=== PATIENT | male | born 1990 | race American Indian/Alaskan Native ===

== ENCOUNTER 2018-06-11 00:32 | Emergency (ER) | payer SELFPAY ==
[2018-06-11] MEDS ORDERED: NACL 0.9% 1000 ML 1,000 ML IV ONE (00:48)
--- NOTE | 2018-06-11 00:59 | Emergency Department Report ---
HPI - General Chief Complaint: Altered Mental Status Time Seen by Provider: 06/11/18 00:44 - HPI HPI: 27-year-old AA male presents to the emergency department by EMS from home with altered mental status. Allegedly the came out from another room and found the patient slumped over and unresponsive. He was given 4 mg of Narcan in route without any change in mental status. He does not have any listed past medical history. The patient was here one previous time, about 3 years ago, with a similar unresponsive episode and some alcohol intoxication and positive urine drug screen. The patient's girlfriend later came bedside and says that the patient was complaining of feeling ill and complaining of a sore throat. He did take about 50 mg of Benadryl. She was laying in bed with him and he started saying that he was feeling sleepy and was going to go to sleep. She noticed that he was having some abnormal breathing patterns and appeared hard to arouse and therefore called for EMS. She denies that the patient had drank any alcohol or used any illicit drugs. ED Past Medical Hx - Past Medical History Previous Medical History?: No - Surgical History Past Surgical History?: No Additional Surgical History: unknown - Social History Smoking Status: Unknown if ever smoked - Medications Home Medications: Home Medications Medication Instructions Recorded Confirmed Last Taken Type RX: Azithromycin [Zithromax Z-DELORIS] 250 mg PO DAILY #6 tab 06/11/18 Unknown Rx RX: Ibuprofen 800 mg PO Q8H PRN #20 tablet 06/11/18 Unknown Rx ED Review of Systems ROS: Stated complaint: AMS Other details as noted in HPI Comment: Unobtainable due to pts medical conditions Physical Exam - Physical Exam Vital Signs: Vital Signs 06/11/18 06/11/18 00:36 00:39 Temperature 100.3 F H Pulse Rate 79 82 Respiratory 21 22 Rate Blood Pressure 153/96 O2 Sat by Pulse 98 Oximetry Physical Exam: The initial physical examination showed the patient to be difficult to arouse and unresponsive but he did have a gag reflex. Heart and lungs sounds are normal and auscultation. Pupils equal and reactive to light. Shortly after the patient had the CT scan done of his head he was awake, alert, oriented and I was able to do a more thorough physical examination. GENERAL: The patient is well-developed well-nourished. HEENT: Normocephalic. Atraumatic. Patient has moist mucous membranes. Patient has bilateral tonsillar hypertrophy and erythema with right-sided tonsillar exudates. EYES: Extraocular motions are intact. Pupils are equal and reactive to light bilaterally. NECK: Supple. Trachea is midline. CHEST/LUNGS: Clear to auscultation. There is no respiratory distress noted. HEART/CARDIOVASCULAR: Regular. There is no tachycardia. There is no obvious murmur. ABDOMEN: Abdomen is soft, nontender. Patient has normal bowel sounds. There is no abdominal distention. SKIN: Skin is warm and dry. NEURO: The patient is awake, alert, and oriented. The patient is cooperative. The patient has no focal neurologic deficits. The patient has normal speech. Cranial nerves II through XII grossly intact. MUSCULOSKELETAL: There is no tenderness or deformity. There is no limitation range of motion. There is no evidence of acute injury. ED Course Vital Signs 06/11/18 06/11/18 00:36 00:39 Temperature 100.3 F H Pulse Rate 79 82 Respiratory 21 22 Rate Blood Pressure 153/96 O2 Sat by Pulse 98 Oximetry ED Medical Decision Making - Lab Data Result diagrams: 06/11/18 00:53 06/11/18 00:53 - EKG Data -: EKG Interpreted by Nd EKG shows normal: sinus rhythm, axis, intervals, QRS complexes, ST-T waves (early repolarization) Rate: normal - EKG Data When compared to previous EKG there are: previous EKG unavailable Interpretation: normal EKG (early repolarization) - Radiology Data Radiology results: report reviewed CT of the head without contrast does not show any bleed, shift, mass, ischemia or any other acute process. - Medical Decision Making This patient originally presented unresponsive and/or as altered mental status. A CT scan of the head was done that did not show any bleed, shift, mass, ischemia or any other acute process. Patient's labs were unremarkable including a CBC, CMP and blood alcohol level. Patient did become awake, alert, oriented shortly after having the CT scan done of his head. Overall it just appears that the patient was very sedated from the Benadryl. The patient was complaining of a sore throat he does appear to have an appearance of strep pharyngitis. This is most likely reason for the patient's mild fever. He was given a dose of Toradol, IV fluid resuscitation and a dose of azithromycin here. He will get a prescription for antibiotics for home and has been given some referrals for primary care. He will return to the ER with any worsening of his symptoms or any acute distress. - Differential Diagnosis strep pharyngitis, substance abuse, sepsis, alcohol intoxication Critical Care Time: No Critical care attestation.: If time is entered above; I have spent that time in minutes in the direct care of this critically ill patient, excluding procedure time. ED Disposition Clinical Impression: Strep pharyngitis, Unresponsive episode, Elevated blood pressure reading Disposition: DC- TO HOME OR SELFCARE Is pt being admited?: No Condition: Stable Instructions: Strep Throat (ED) Additional Instructions: Please follow up with a primary care physician in the next few days. Return to the emergency Department with any worsening of your symptoms or any acute distress. Prescriptions: RX: Azithromycin [Zithromax Z-DELORIS] 250 mg PO DAILY #6 tab RX: Ibuprofen 800 mg PO Q8H PRN #20 tablet PRN Reason: Pain , Severe (7-10) Referrals: PRIMARY CAREMD [Primary Care Provider] - 3-5 Days [facility] [Outside] - 3-5 Days Time of Disposition: 03:25
[2018-06-11 01:05] LABS: Basophils # (Auto) 0.1 K/mm3 (0.0-0.1); Basophils % (Auto) 0.9 % (0.0-1.8); Eosinophils # (Auto) 0.3 K/mm3 (0.0-0.4); Eosinophils % (Auto) 3.9 % (0.0-4.3); Hematocrit 46.8 % (35.5-45.6); Hemoglobin 15.6 gm/dl (11.8-15.2); Lymphocytes # (Auto) 2.1 K/mm3 (1.2-5.4); Lymphocytes % (Auto) 27.7 % (13.4-35.0); Mean Corpuscular HGB Conc 33 % (32-34); Mean Corpuscular Volume 91 fl (84-94); Monocytes # (Auto) 0.5 K/mm3 (0.0-0.8); Monocytes % (Auto) 6.2 % (0.0-7.3); Platelet Count 189 K/mm3 (140-440); Red Blood Count 5.16 M/mm3 (3.65-5.03); Red Cell Distribution Width 14.9 % (13.2-15.2)
--- NOTE | 2018-06-11 01:25 | Cat Scan Report ---
FINAL REPORT EXAM: CT HEAD/BRAIN WO CON HISTORY: AMS TECHNIQUE: CT was performed from the foramen magnum through the vertex in the axial plane without th e use of intravenous contrast. PRIORS: None. FINDINGS: The rbuno/white matter attenuation pattern is normal. There is no mass lesion or mass effect. There ar e no abnormal extra-axial fluid collections. There is no evidence of acute intracranial hemorrhage or infarct. The ventricles are of normal size and configuration. The skull and orbits are unremarkable . The visualized paranasal sinuses are clear. IMPRESSION: Normal CT of the head.
[2018-06-11 01:30] LABS: Alanine Aminotransferase 14 units/L (7-56); Albumin 4.3 g/dL (3.9-5); BUN/Creatinine Ratio 12; Blood Urea Nitrogen 12 mg/dL (9-20); Calcium 9.2 mg/dL (8.4-10.2); Hemolysis Index 31
[2018-06-11] MEDS ORDERED: ZITHROMAX 500 MG in NACL 0.9% 250ML 250 ML IV ONE (01:53)
[2018-06-11] MEDS ORDERED: TORADOL IV ONE (01:53)
[2018-06-11 03:40] VITALS: BP 119/74
== END 2018-06-11 03:40 | disposition home or self-care (01) ==
LOC: ED 00:32 → MERGE 00:32 → ED 03:40
DX: J02.0 Streptococcal pharyngitis (principal); R46.4 Slowness and poor responsiveness; R03.0 Elevated blood-pressure reading, without diagnosis of hypertension
CPT/HCPCS: 36415; 70450; 80053; 82140; 84484; 85025; 93005; 93010; 96365; 96375; 99285; G0480; J0456; J1885; J7030; J7050; 80320

== ENCOUNTER 2018-08-24 17:27 | Emergency (ER) | payer OTHER ==
[2018-08-24] MEDS ORDERED: MORPHINE IV ONE ×2 (18:09→20:33)
[2018-08-24] MEDS ORDERED: NACL 0.9% 1000 ML 1,000 ML IV ONE ×2 (18:09→20:34)
[2018-08-24] MEDS ORDERED: ZOFRAN IV ONE (18:09)
--- NOTE | 2018-08-24 18:22 | Emergency Department Report ---
ED General Adult HPI - General Chief complaint: Back Pain/Injury Stated complaint: CANT BREATH/TEMP HIGH Time Seen by Provider: 08/24/18 18:00 Source: patient, family Mode of arrival: Wheelchair Limitations: No Limitations - History of Present Illness Initial comments: Patient presents to the emergency department with a chief complaint left back pain and mild headache. Patient states the symptoms started this morning. Patient describes the back pain is sharp in nature with no migration. The patient describes his headache as being in between the bridge of his nose and describes it as a throbbing-like pain. Not worse headache of life. -: Sudden Location: head, back Radiation: non-radiation Severity scale (0 -10): 8 Quality: sharp Consistency: constant Improves with: none Worsens with: none Associated Symptoms: denies other symptoms Treatments Prior to Arrival: none - Related Data Previous Rx's Medication Instructions Recorded Last Taken Type Azithromycin [Zithromax Z-DELORIS] 250 mg PO DAILY #6 tab 06/11/18 Unknown Rx Ibuprofen 800 mg PO Q8H PRN #20 tablet 06/11/18 Unknown Rx HYDROcodone/APAP 5-325 [[place] 1 each PO Q6HR PRN #12 tablet 08/25/18 Unknown Rx 5/325] Ibuprofen [Motrin] 800 mg PO Q8HR PRN #30 tablet 08/25/18 Unknown Rx predniSONE [Deltasone] 20 mg PO DAILY #15 tablet 08/25/18 Unknown Rx Allergies Allergy/AdvReac Type Severity Reaction Status Date / Time No Known Allergies Allergy Unverified 06/11/18 00:44 ED Review of Systems ROS: Stated complaint: CANT BREATH/TEMP HIGH Other details as noted in HPI Constitutional: denies: chills, fever Eyes: denies: eye pain, eye discharge, vision change ENT: denies: ear pain, throat pain Respiratory: denies: cough, shortness of breath, wheezing Cardiovascular: denies: chest pain, palpitations Endocrine: no symptoms reported Gastrointestinal: denies: abdominal pain, nausea, diarrhea Genitourinary: denies: urgency, dysuria Musculoskeletal: back pain. denies: joint swelling, arthralgia Skin: denies: rash, lesions Neurological: headache. denies: weakness, paresthesias Psychiatric: denies: anxiety, depression Hematological/Lymphatic: denies: easy bleeding, easy bruising ED Past Medical Hx - Past Medical History Previous Medical History?: No - Surgical History Past Surgical History?: No Additional Surgical History: unknown - Social History Smoking Status: Current Every Day Smoker Substance Use Type: Alcohol - Medications Home Medications: Home Medications Medication Instructions Recorded Confirmed Last Taken Type Azithromycin [Zithromax Z-DELORIS] 250 mg PO DAILY #6 tab 06/11/18 Unknown Rx Ibuprofen 800 mg PO Q8H PRN #20 tablet 06/11/18 Unknown Rx HYDROcodone/APAP 5-325 [[place] 1 each PO Q6HR PRN #12 tablet 08/25/18 Unknown Rx 5/325] Ibuprofen [Motrin] 800 mg PO Q8HR PRN #30 tablet 08/25/18 Unknown Rx predniSONE [Deltasone] 20 mg PO DAILY #15 tablet 08/25/18 Unknown Rx ED Physical Exam - General Limitations: No Limitations General appearance: alert, in no apparent distress - Head Head exam: Present: atraumatic, normocephalic - Eye Eye exam: Present: normal appearance, PERRL, EOMI - ENT ENT exam: Present: mucous membranes moist - Neck Neck exam: Present: normal inspection - Respiratory Respiratory exam: Present: normal lung sounds bilaterally. Absent: respiratory distress, wheezes, rales, rhonchi - Cardiovascular Cardiovascular Exam: Present: normal rhythm, tachycardia. Absent: systolic murmur, diastolic murmur, rubs, gallop - GI/Abdominal GI/Abdominal exam: Present: soft, normal bowel sounds. Absent: distended, tenderness - Rectal Rectal exam: Present: deferred - Extremities Exam Extremities exam: Present: normal inspection - Back Exam Back exam: Present: CVA tenderness (L) - Neurological Exam Neurological exam: Present: alert, oriented X3, normal gait, reflexes normal, other (nose, [id number], rapid hand movement, gait all normal, no nuchal rigidity, patient able to touch his chest with his chin, no meningeal signs). Absent: CN II-XII intact, motor sensory deficit - Psychiatric Psychiatric exam: Present: normal affect, normal mood - Skin Skin exam: Present: warm, dry, intact, normal color. Absent: rash ED Course Vital Signs 08/24/18 08/24/18 08/24/18 17:39 17:40 17:42 Temperature Pulse Rate 101 H 102 H Respiratory 28 H 29 H Rate Blood Pressure 122/58 122/58 Blood Pressure [Left] O2 Sat by Pulse 100 100 99 Oximetry 08/24/18 08/24/18 08/24/18 17:44 18:00 19:38 Temperature 101.1 F H 100.7 F H Pulse Rate 96 H 96 H Respiratory 16 24 Rate Blood Pressure 133/66 Blood Pressure 125/60 [Left] O2 Sat by Pulse 94 94 Oximetry 08/24/18 08/24/18 08/24/18 20:04 20:45 20:47 Temperature Pulse Rate 97 H Respiratory 27 H 28 H 28 H Rate Blood Pressure 125/60 Blood Pressure [Left] O2 Sat by Pulse 94 Oximetry 08/24/18 08/24/18 08/25/18 21:15 21:17 00:18 Temperature 103 F H Pulse Rate 94 H Respiratory 16 16 26 H Rate Blood Pressure Blood Pressure 133/69 [Left] O2 Sat by Pulse 100 Oximetry 08/25/18 01:33 Temperature 101.1 F H Pulse Rate 92 H Respiratory 22 Rate Blood Pressure Blood Pressure 106/43 [Left] O2 Sat by Pulse 100 Oximetry ED Medical Decision Making - Lab Data Result diagrams: 08/24/18 18:22 08/24/18 18:22 Lab Results 08/24/18 08/24/18 08/24/18 Range/Units 18:22 18:22 20:35 WBC 5.9 (4.5-11.0) K/mm3 RBC 4.79 (3.65-5.03) M/mm3 Hgb 14.6 (11.8-15.2) gm/dl Hct 42.4 (35.5-45.6) % MCV 89 (84-94) fl MCH 31 (28-32) pg MCHC 35 H (32-34) % RDW 13.9 (13.2-15.2) % Plt Count 177 (140-440) K/mm3 Lymph % (Auto) 5.6 L (13.4-35.0) % [place] % (Auto) 8.0 H (0.0-7.3) % Eos % (Auto) 0.9 (0.0-4.3) % Baso % (Auto) 0.3 (0.0-1.8) % Lymph # 0.3 L (1.2-5.4) K/mm3 Traverse # 0.5 (0.0-0.8) K/mm3 Eos # 0.1 (0.0-0.4) K/mm3 Baso # 0.0 (0.0-0.1) K/mm3 Seg Neutrophils % 85.2 H (40.0-70.0) % Seg Neutrophils # 5.0 (1.8-7.7) K/mm3 Sodium 135 L (137-145) mmol/L Potassium 3.5 L (3.6-5.0) mmol/L Chloride 100.5 (98-107) mmol/L Carbon Dioxide 21 L (22-30) mmol/L Anion Gap 17 mmol/L BUN 11 (9-20) mg/dL Creatinine 0.9 (0.8-1.5) mg/dL Estimated GFR > 60 ml/min BUN/Creatinine Ratio 12 % Glucose 101 H (75-100) mg/dL Calcium 9.2 (8.4-10.2) mg/dL Total Bilirubin 0.70 (0.1-1.2) mg/dL AST 15 (5-40) units/L ALT 10 (7-56) units/L Alkaline Phosphatase 52 (35-129) units/L Total Protein 6.5 (6.3-8.2) g/dL Albumin 4.0 (3.9-5) g/dL Albumin/Globulin Ratio 1.6 % Urine Color Yellow (Yellow) Urine Turbidity Clear (Clear) Urine pH 7.0 (5.0-7.0) Ur Specific [place] 1.015 (1.003-1.030) Urine Protein <15 mg/dl (Negative) mg/dL Urine Glucose (UA) Neg (Negative) mg/dL Urine Ketones Tr (Negative) mg/dL Urine Blood Mod (Negative) Urine Nitrite Neg (Negative) Urine Bilirubin Neg (Negative) Urine Urobilinogen 4.0 (<2.0) mg/dL Ur Leukocyte Esterase Neg (Negative) Urine WBC (Auto) 1.0 (0.0-6.0) /HPF Urine RBC (Auto) 17.0 (0.0-6.0) /HPF Urine Mucus Few /HPF Influenza A (Rapid) (Negative) Influenza B (Rapid) (Negative) 08/25/18 Range/Units 00:10 WBC (4.5-11.0) K/mm3 RBC (3.65-5.03) M/mm3 Hgb (11.8-15.2) gm/dl Hct (35.5-45.6) % MCV (84-94) fl MCH (28-32) pg MCHC (32-34) % RDW (13.2-15.2) % Plt Count (140-440) K/mm3 Lymph % (Auto) (13.4-35.0) % [place] % (Auto) (0.0-7.3) % Eos % (Auto) (0.0-4.3) % Baso % (Auto) (0.0-1.8) % Lymph # (1.2-5.4) K/mm3 [place] # (0.0-0.8) K/mm3 Eos # (0.0-0.4) K/mm3 Baso # (0.0-0.1) K/mm3 Seg Neutrophils % (40.0-70.0) % Seg Neutrophils # (1.8-7.7) K/mm3 Sodium (137-145) mmol/L Potassium (3.6-5.0) mmol/L Chloride (98-107) mmol/L Carbon Dioxide (22-30) mmol/L Anion Gap mmol/L BUN (9-20) mg/dL Creatinine (0.8-1.5) mg/dL Estimated GFR ml/min BUN/Creatinine Ratio % Glucose (75-100) mg/dL Calcium (8.4-10.2) mg/dL Total Bilirubin (0.1-1.2) mg/dL AST (5-40) units/L ALT (7-56) units/L Alkaline Phosphatase (35-129) units/L Total Protein (6.3-8.2) g/dL Albumin (3.9-5) g/dL Albumin/Globulin Ratio % Urine Color (Yellow) Urine Turbidity (Clear) Urine pH (5.0-7.0) Ur Specific [place] (1.003-1.030) Urine Protein (Negative) mg/dL Urine Glucose (UA) (Negative) mg/dL Urine Ketones (Negative) mg/dL Urine Blood (Negative) Urine Nitrite (Negative) Urine Bilirubin (Negative) Urine Urobilinogen (<2.0) mg/dL Ur Leukocyte Esterase (Negative) Urine WBC (Auto) (0.0-6.0) /HPF Urine RBC (Auto) (0.0-6.0) /HPF Urine Mucus /HPF Influenza A (Rapid) Negative (Negative) Influenza B (Rapid) Negative (Negative) - Radiology Data Radiology results: report reviewed [facility] [address] [place] [address] Cat Scan Report Signed Patient: TAYLER ASHER MR#: [id number] : 1990 Acct:[id number] Age/Sex: 27 / M ADM Date: 08/24/18 Loc: ED Attending Dr: Ordering Physician: FRANKLIN MCCABE MD Date of Service: 08/24/18 Procedure(s): CT abdomen pelvis wo con Accession Number(s): [id number] cc: FRANKLIN MCCABE MD PROCEDURE: CT ABDOMEN PELVIS WO CON TECHNIQUE: Axial helical imaging through the abdomen and pelvis with sagittal and coronal reformatted images obtained. HISTORY: left flank pain COMPARISONS: None FINDINGS: There is no evidence of infiltrate, pneumothorax or pleural fluid collection. The liver, spleen, pancreas and adrenal glands are unremarkable. The gallbladder is moderately distended and unremarkable. The kidneys are unremarkable. There is no evidence of hydronephrosis, hydroureter or urinary tract calculi. The bowel is normal caliber. The appendix is normal caliber and contains air. There is no evidence of pneumoperitoneum or free fluid. The abdominal aorta is normal caliber. There is no evidence of intra-abdominal adenopathy. The urinary bladder is moderately distended and unremarkable. The prostate gland and seminal vesicles are unremarkable. The bony structures are notable for a large diffuse disc bulge at the L5-S1 level that results in impingement on the anterior aspect of the thecal sac and canal stenosis at this level. IMPRESSION: 1. No evidence of an acute intra-abdominal process. 2. Large diffuse disc bulge L5-S1 level with impingement on the anterior aspect of the thecal sac and canal stenosis at this level. If further imaging is required, MRI may be helpful. This document is electronically signed by Christa Mills MD., August 24 2018 09:15:43 PM ET Transcribed By: ED Dictated By: CHRISTA MILLS MD Electronically Authenticated By: CHRISTA MILLS MD Signed Date/Time: 08/24/182116 DD/ 07 TD/TT: 08/24/182036 [facility] [address] [place] [address] XRay Report Signed Patient: TAYLER ASHER MR#: [id number] : 1990 Acct:[id number] Age/Sex: 27 / M ADM Date: 08/24/18 Loc: ED Attending Dr: Ordering Physician: FRANKLIN MCCABE MD Date of Service: 08/24/18 Procedure(s): XR chest 1V ap Accession Number(s): [id number] cc: FRANKLIN MCCABE MD Fluoro Time In Minutes: PROCEDURE: XR CHEST 1V AP TECHNIQUE: Chest radiograph single view. HISTORY: cough COMPARISONS: None . FINDINGS: Heart: Normal. Mediastinum/Vessels: Normal. Lungs/Pleural space: Normal. Bony thorax: No acute osseous abnormality. Life support devices: None. IMPRESSION: No acute cardiopulmonary abnormality. This document is electronically signed by Suri Weir MD., August 24 2018 11:30:32 PM ET Transcribed By: CO Dictated By: SURI WEIR MD Electronically Authenticated By: SURI WEIR MD Signed Date/Time: 08/24/182331 DD/ 16 TD/TT: 08/24/182316 - Medical Decision Making Discussed CT results with the patient and his Discussed possible lumbar puncture but the patient politely declined Critical care attestation.: If time is entered above; I have spent that time in minutes in the direct care of this critically ill patient, excluding procedure time. ED Disposition Clinical Impression: Bulging disc Disposition: DC-01 TO HOME OR SELFCARE Is pt being admited?: No Does the pt Need Aspirin: No Condition: Stable Instructions: Lumbar Disc Herniation (ED) Additional Instructions: return if worse Prescriptions: predniSONE [Deltasone] 20 mg PO DAILY #15 tablet Ibuprofen [Motrin] 800 mg PO Q8HR PRN #30 tablet PRN Reason: Pain HYDROcodone/APAP 5-325 [[place] 5/325] 1 each PO Q6HR PRN #12 tablet PRN Reason: Pain Referrals: NADEEM BRANHAM MD [Primary Care Provider] - 3-5 Days ROSY FINE MD [Staff Physician] - 3-5 Days DEBORAH NAZARIO DO [Staff Physician] - 3-5 Days [facility] [Provider Group] - 3-5 Days [facility] [Provider Group] - 3-5 Days Forms: Work/School Release Form(ED) Time of Disposition: 01:26
[2018-08-24 18:43] LABS: Basophils % (Auto) 0.3 % (0.0-1.8); Eosinophils # (Auto) 0.1 K/mm3 (0.0-0.4); Eosinophils % (Auto) 0.9 % (0.0-4.3); Hematocrit 42.4 % (35.5-45.6); Hemoglobin 14.6 gm/dl (11.8-15.2); Lymphocytes # (Auto) 0.3 K/mm3 (1.2-5.4); Lymphocytes % (Auto) 5.6 % (13.4-35.0); Mean Corpuscular HGB Conc 35 % (32-34); Mean Corpuscular Volume 89 fl (84-94); Monocytes # (Auto) 0.5 K/mm3 (0.0-0.8); Platelet Count 177 K/mm3 (140-440); Red Blood Count 4.79 M/mm3 (3.65-5.03); Red Cell Distribution Width 13.9 % (13.2-15.2)
[2018-08-24 19:02] LABS: Alanine Aminotransferase 10 units/L (7-56); BUN/Creatinine Ratio 12; Blood Urea Nitrogen 11 mg/dL (9-20); Calcium 9.2 mg/dL (8.4-10.2); Hemolysis Index 13
[2018-08-24] MEDS ORDERED: TORADOL IVP ONE (20:34)
[2018-08-24 21:08] LABS: Bilirubin,Urine NEG (Negative); Blood,Urine MOD (Negative); Color,Urine Yellow (Yellow); Mucus,Urine FEW /HPF; Protein,Urine <15 mg/dL mg/dL (Negative)
--- NOTE | 2018-08-24 21:17 | Cat Scan Report ---
PROCEDURE: CT ABDOMEN PELVIS WO CON TECHNIQUE: Axial helical imaging through the abdomen and pelvis with sagittal and coronal reformatte d images obtained. HISTORY: left flank pain COMPARISONS: None FINDINGS: There is no evidence of infiltrate, pneumothorax or pleural fluid collection. The liver, spleen, pancreas and adrenal glands are unremarkable. The gallbladder is moderately distended and unremarkable. The kidneys are unremarkable. There is no evidence of hydronephrosis, hydroureter or urinary tract ca lculi. The bowel is normal caliber. The appendix is normal caliber and contains air. There is no evidence of pneumoperitoneum or free fluid. The abdominal aorta is normal caliber. There is no evidence of intra-abdominal adenopathy. The urinary bladder is moderately distended and unremarkable. The prostate gland and seminal vesicles are unremarkable. The bony structures are notable for a large diffuse disc bulge at the L5-S1 level that results in imp ingement on the anterior aspect of the thecal sac and canal stenosis at this level. IMPRESSION: 1. No evidence of an acute intra-abdominal process. 2. Large diffuse disc bulge L5-S1 level with impingement on the anterior aspect of the thecal sac and canal stenosis at this level. If further imaging is required, MRI may be helpful. This document is electronically signed by Christa Mills MD., August 24 2018 09:15:43 PM ET
--- NOTE | 2018-08-24 23:32 | XRay Report ---
PROCEDURE: XR CHEST 1V AP TECHNIQUE: Chest radiograph single view. HISTORY: cough COMPARISONS: None . FINDINGS: Heart: Normal. Mediastinum/Vessels: Normal. Lungs/Pleural space: Normal. Bony thorax: No acute osseous abnormality. Life support devices: None. IMPRESSION: No acute cardiopulmonary abnormality. This document is electronically signed by Chencho Parsons MD., August 24 2018 11:30:32 PM ET
[2018-08-25] MEDS ORDERED: TYLENOL PO ONE (00:17)
[2018-08-25] MEDS ORDERED: TYLENOL ONE (00:17)
[2018-08-25 01:34] VITALS: BP 106/43
== END 2018-08-25 01:51 | disposition home or self-care (01) ==
LOC: ED 17:27 → MERGE 17:27 → ED 08-25 01:51
DX: M51.27 Other intervertebral disc displacement, lumbosacral region (principal); R51 Headache; F17.200 Nicotine dependence, unspecified, uncomplicated
CPT/HCPCS: 36415; 71045; 74176; 80053; 81001; 85025; 87086; 87400; 96361; 96374; 96375; 99285; J1885; J2270; J2405; J7030

== ENCOUNTER 2018-09-08 15:18 | Emergency (ER) | payer SELFPAY ==
[2018-09-08 15:55] VITALS: BP 146/77
== END 2018-09-08 19:05 | disposition left against medical advice (07) ==
LOC: EDSEX → ED 15:18
DX: R06.00 Dyspnea, unspecified (principal); Z53.21 Procedure and treatment not carried out due to patient leaving prior to being seen by health care provider